=== PATIENT | male | born 1965 | race African-American/Black ===

== ENCOUNTER 2024-12-16 06:27 | Outpatient (CLI) | payer MEDICAID ==
[2024-12-16] MEDS ORDERED: GADOTERATE MEGLUMINE 7.5 MMOL/15 ML VIAL IV ONE (06:42)
[2024-12-16] MEDS ORDERED: LIDOcaine 1%/PF 5ML 10 MG/ML VIAL ONE (06:42)
[2024-12-16] MEDS ORDERED: LIDOcaine 1% 30ml preserv. free vial ONE (06:42)
[2024-12-16] MEDS ORDERED: iohexol 300 MG/1 ML 50ml polymer ONE (06:42)
== END 2024-12-16 23:59 | disposition home or self-care (01) ==
LOC: RAD 06:27
PROVIDERS: ATTEND Specialist
DX: M25.512 Pain in left shoulder (principal); M75.42 Impingement syndrome of left shoulder; M75.112 Incomplete rotator cuff tear or rupture of left shoulder, not specified as traumatic
CPT/HCPCS: 73222; A9575; J2003; J3490; Q9967; 23350